=== PATIENT | female | born 1955 | race Hispanic/Latino ===

== ENCOUNTER 2021-06-18 17:22 | Emergency (ER) | payer BC ==
--- OUTSIDE RECORDS SUMMARY | 2021-06-18 17:25 | XMS REPORT | Continuity of Care Document ---
:1955 Author Organization [facility] t Address [address] [place] [address] Dr. [address]. [address] [place] [address] Care Team Providers Name Role Phone DR JOANN Attending Clinician Unavailable DR JOANN Admitting Clinician Unavailable Problems This patient has no known problems. Allergies, Adverse Reactions, Alerts This patient has no known allergies or adverse reactions. Medications This patient has no known medications. Procedures This patient has no known procedures. Encounters Start End Encounter Admission Attending Care Care Encounter Source Date/Time Date/Time Type Type Clinicians Facility Department ID 2020-01-05 2020-01-05 Outpatient SARAH SWANSON [facility] [id number] [facility] 04:22:00 07:45:00 [facility] Results This patient has no known results.
--- NOTE | 2021-06-18 18:14 | ER ---
Nurse's Notes [facility] Name: Lanie Weaver Age: 65 yrs Sex: Female : 1955 Arrival Date: 06/18/2021 Time: 17:23 Bed Waiting Private MD: Diagnosis: ED Course: 06/18 17:23 Patient arrived in ED. as 18:13 Patient's name was called from ER lobby. No response. Unable to locate patient. Will vg1 disposition as left without being seen by a provider. Administered Medications: No medications were administered Outcome: 18:13 Patient left the ED. vg1 Signatures: Teresa Hurt Victoria, RN RN vg1
== END 2021-06-18 18:13 | disposition left against medical advice (07) ==
LOC: ER 17:22
DX: Z02.89 Encounter for other administrative examinations (principal)

== ENCOUNTER 2021-10-30 17:23 | Emergency (ER) | payer BC ==
--- OUTSIDE RECORDS SUMMARY | 2021-10-30 17:24 | XMS REPORT | Continuity of Care Document ---
:1955 Author Organization [facility] t Address [address] [place] [address] Care Team Providers Name Role Phone HARLEY, E Primary Care Physician Unavailable Jamia LI Attending Clinician Unavailable Sam FUNG, S Attending Clinician Doctor Unassigned, Name Attending Clinician Unavailable DR JOANN Attending Clinician Unavailable DR JOANN Admitting Clinician Unavailable Payers Payer Name Policy Type Policy Number Effective Date Expiration Date Jamia TRAMMELLS O [id number] 2020 00:00:00 Problems Condition Condition Condition Status Onset Resolution Last Treating Co mments Source Name Details Category Date Date Treatment Clinician Date Obesity Obesity Disease Active [facility] (BMI (BMI 3-13 ity of 30-39.9) 30-39.9) 00:00: [place] [facility] Acute Acute Disease Active 0 [facility] postoperat postoperat 3-13 [facility] [place]: [place] abdominal abdominal 00 Medi hector pain pain Branch Allergies, Adverse Reactions, Alerts Allergy Allergy Status Severity Reaction(s) Onset Inactive Treating Comm ents Source Name Type Date Date Clinician No Known DA Active [facility] s NO KNOWN Drug Active Univers ALLERGIE Class ity of S [facility] Social History Social Habit Start Date Stop Date Quantity Comments Source Exposure to Not sure [facility] SARS-CoV-2 (event) Medica l Branch Tobacco use and 2018-08-29 2018-08-29 Never used [facility] [place] exposure 00:00:00 00:00:00 Medical Branch Sex Ass[birth year] At [birth year] [facility] [place] 00:00:00 00:00:00 Medical Branch Smoking Status Start Date Stop Date Source Never smoker [facility] Medical Branch Medications Ordered Filled Start Stop Current Ordering Indication Dosage Frequency Signature Comments Components Source Medication Medication Date Date Medication? Clinician (SIG) Name Name No known 2019-0 No Univers medications 3-13 ity of 12:06: [address] No known 2019-0 No Univers medications 3-13 ity of 12:06: [address] No known 2019-0 No Univers medications 3-13 ity of 12:06: [address] No known 2019-0 No Univers medications 3-13 ity of 12:06: [address] No known 2019-0 No Univers medications 3-13 ity of 12:06: [address] No known 2019-0 No Univers medications 3-13 ity of 12:06: [address] No known 2019-0 No Univers medications 3-13 ity of 12:06: [address] No known 2019-0 No Univers medications 3-13 ity of 12:06: [address] Vital Signs Vital Name Observation Time Observation Value Comments Source Height 2020-01-05 04:26:00 157.48 CM Weight 2020-01-05 04:26:00 81.64 KG Weight 2020-01-04 08:35:00 81.64 KG Height 2020-01-04 08:35:00 157.48 CM Procedures Procedure Date / Time Performing Clinician Source Performed BI BREAST CYST 2021-09-29 19:57:11 Indu Li [facility] ASPIRATION LEFT [facility] Branch BI US GUIDED CORE BREAST 2021-09-29 19:50:15 [facility] BI ULTRASOUND BREAST 2021-09-29 18:20:00 Indu Li [facility] COMPLETE BILATERAL Medical Branc h BI DIAGNOSTIC 2021-08-26 14:28:09 Indu Li [facility] TOMOSYNTHESIS BILATERAL Medical Branch EXTERNAL PROVIDER 2021-08-22 06:01:00 Doctor Unassigned, No [facility] RECORDS Name Medical Branch AUTHORIZATION TO RELEASE 2021-08-19 06:01:00 Doctor Unassigned, No [facility] PHI TO [facility] Name Medical Branch REFERRAL- 2021-08-13 06:01:00 Doctor Unassigned, No [facility] REQUEST/RESPONSE Name Medical Branch EXCISION OF RIGHT TARSAL 2020-01-05 00:00:00 [facility] REPAIR RIGHT LOWER LEG 2020-01-05 00:00:00 [facility] TENDON OPEN Center Encounters Start End Encounter Admission Attending Care Care Encounter Source Date/Time Date/Time Type Type Clinicians Facility Department ID 2021-10-07 2021-10-07 Outpatient R [facility] [id number] Univers 13:00:00 13:00:00 INDU [id number] xander [facility] 2021-10-07 2021-10-07 Outpatient R [facility] [id number] Univers 13:00:00 13:00:00 INDU terrell [facility] 2021-09-29 2021-09-29 [facility] [id number] Univers 14:06:43 23:59:00 Encounter Indu S SPECIALTY [id number] [id number] [phone] [address] 2021-09-29 2021-09-29 [facility] [id number] Univers 12:30:39 14:05:00 Encounter Indu S SPECIALTY [id number] [id number] [id number] [address] 2021-09-29 2021-09-29 Outpatient R [facility] [id number] Univers 12:29:59 12:29:59 INDU terrell [facility] 2021-09-29 2021-09-29 [facility] [id number] Univers 12:29:59 12:29:59 Encounter Indu S SPECIALTY [id number] [id number] [phone] In twin [place] [address] [facility] 2021-09-29 2021-09-29 [facility] [id number] Univers 12:28:27 12:28:27 Encounter Indu S SPECIALTY [id number] [id number] [phone] In twin [place] [address] [facility] 2021-08-26 2021-08-26 [facility] [id number] Univers 08:28:09 23:59:00 Encounter Indu S SPECIALTY [id number] [id number] [phone] In twin [place] 802 [facility] 2021-08-22 2021-08-22 Orders Doctor MORGAN [id number] Univers 00:00:00 00:00:00 Only Unassigned, NIMO [id number] ity of [facility] [id number] Dewayne as [phone] [facility] hector [address] [place] [address] 2021-08-19 2021-08-19 Orders Doctor EDDIE [id number] Univers 00:00:00 00:00:00 Only Unassigned, NIMO [id number] ity of [facility] [id number] Dewayne as [phone] [facility] hector [address] [place] 2021-08-13 2021-08-13 Orders Doctor EDDIE [id number] Univers 00:00:00 00:00:00 Only Unassigned, NIMO [id number] ity of [facility] [id number] Dewayne as [phone] [address] 2020-01-05 2020-01-05 Outpatient Darrell DAVID [facility] [id number] 002 [facility] 04:22:00 07:45:00 [facility] Results This patient has no known results.
--- NOTE | 2021-10-30 19:24 | RAD REPORT ---
EXAM DESCRIPTION: RAD - Foot Left 3 View - 10/30/2021 7:13 pm CLINICAL HISTORY: Left Foot pain status post injury FINDINGS: No fracture or dislocation is seen. Large plantar calcaneal spur
--- NOTE | 2021-10-30 19:42 | ER ---
Nurse's Notes [facility] Name: Lanie Weaver Age: 66 yrs Sex: Female : 1955 Arrival Date: 10/30/2021 Time: 17:43 Bed 6 Private MD: Diagnosis: Pain in left foot;Contusion of left foot;Other sprain of left foot Presentation: 10/30 18:40 Chief complaint: Patient states: L leg and foot pain that began yesterday after falling ss at work. Coronavirus screen: Client denies travel out of the [place] in the last 14 days. Ebola Screen: Patient denies exposure to infectious person. Patient denies travel to an Ebola-affected area in the 21 days before illness onset. Initial Sepsis Screen: Does the patient meet any 2 criteria? No. Patient's initial sepsis screen is negative. Does the patient have a suspected source of infection? No. Patient's initial sepsis screen is negative. Risk Assessment: Do you want to hurt yourself or someone else? Patient reports no desire to harm self or others. Onset of symptoms was October 29, 2021. 18:40 Method Of Arrival: Ambulatory ss 18:40 Acuity: JOY 4 ss Historical: - Allergies: 18:42 No Known Allergies; ss - Immunization history:: Client reports having NOT received the Covid vaccine. - Social history:: Smoking status: Patient denies any tobacco usage or history of. Screenin:49 Abuse screen: Denies threats or abuse. Denies injuries from another. Nutritional as6 screening: No deficits noted. Tuberculosis screening: No symptoms or risk factors identified. Fall Risk None identified. Assessment: 19:48 General: Appears in no apparent distress. Behavior is calm, cooperative. Pain: as6 Complains of pain in left lateral ankle, left Achilles, left medial ankle and anterior aspect of left ankle. Neuro: Level of Consciousness is awake, alert, obeys commands, Oriented to person, place, time, situation. Cardiovascular: JVD is absent Patient's skin is warm and dry. Respiratory: Respiratory effort is even, unlabored, Respiratory pattern is regular, symmetrical. Musculoskeletal: Swelling present in left lateral ankle, left Achilles, left medial ankle and anterior aspect of left ankle. Vital Signs: 18:40 BP 122 / 82; Pulse 79; Resp 16; Temp 98.8(TE); Pulse Ox 99% on R/A; Weight 80.74 kg; Height 5 ft. 2 in. (157.48 cm); Pain 5/10; 18:40 Body Mass Index 32.56 (80.74 kg, 157.48 cm) ED Course: 17:43 Patient arrived in ED. ds1 18:04 Quinn Urena DO is Attending Physician. ms3 18:42 Triage completed. 18:42 Arm band placed on right wrist. 19:15 Foot Left 3 View XRAY In Process Unspecified. EDMS 19:28 Luis Enrique Gonzalez, RN is Primary Nurse. as6 19:31 Attending Physician role handed off by Quinn Urena DO [facility] 19:31 Efren Ruiz MD is Attending Physician. [facility] 19:41 Francisco Javier Garsia MD is Referral Physician. [facility] 19:49 No provider procedures requiring assistance completed. Patient did not have IV access as6 during this emergency room visit. 19:50 Bed in low position. Call light in reach. as6 Administered Medications: No medications were administered Medication: 19:50 VIS not applicable for this client. as6 Outcome: 19:41 Discharge ordered by . [facility] 19:50 Discharged to home ambulatory. as6 19:50 Condition: stable 19:50 Discharge instructions given to patient, Instructed on discharge instructions, follow up and referral plans. medication usage, Demonstrated understanding of instructions, follow-up care, medications, Prescriptions given X 2. 19:50 Patient left the ED. as6 Signatures: Dispatcher [employer] [facility] Efren Ruiz MD MD cha Sanford, Demi ds1 Radha Velasquez RN RN Quinn Urena DO DO ms3 Luis Enrique Gonzalez, SYLVIA RN as6
--- NOTE | 2021-10-30 19:42 | EDPHYS ---
Physician Documentation [facility] Name: Lanie Weaver Age: 66 yrs Sex: Female : 1955 Arrival Date: 10/30/2021 Time: 17:43 Bed 6 Private MD: ED Physician Efren Ruiz HPI: 10/30 18:11 This 66 yrs old Female presents to ER via Unassigned with complaints of Fall ms3 Injury. 18:11 Details of fall: The patient fell from an upright position, while standing, and struck ms3 Plastic ramp. Onset: The symptoms/episode began/occurred acutely, yesterday. Associated injuries: The patient sustained left leg, left foot. Severity of symptoms: At their worst the symptoms were moderate, in the emergency department the symptoms are unchanged, a " 5" out of "10". Historical: - Allergies: 18:42 No Known Allergies; ss - Immunization history:: Client reports having NOT received the Covid vaccine. - Social history:: Smoking status: Patient denies any tobacco usage or history of. ROS: 18:11 Constitutional: Negative for fever, and chills. Neck: Negative for injury, pain, and ms3 swelling, Cardiovascular: Negative for chest pain, and palpitations. Respiratory: Negative for shortness of breath, cough, wheezing, and pleuritic chest pain, Abdomen/GI: Negative for abdominal pain, nausea, vomiting, diarrhea, and constipation, Skin: Negative for injury, rash, and discoloration. 18:11 All other systems are negative. Exam: 18:11 Constitutional: This is a well developed, well nourished patient who is awake, alert, ms3 and in no acute distress. Head/Face: Normocephalic, atraumatic. Neck: Trachea midline, no cervical lymphadenopathy. Supple, full range of motion without nuchal rigidity, or vertebral point tenderness. No Meningismus. Chest/axilla: Normal chest wall appearance and motion. Nontender with no deformity. Cardiovascular: Regular rate and rhythm with a normal S1 and S2. No gallops, murmurs, or rubs. Normal PMI, no JVD. No pulse deficits. Respiratory: Lungs have equal breath sounds bilaterally, clear to auscultation and percussion. No rales, rhonchi or wheezes noted. No increased work of breathing, no retractions or nasal flaring. Abdomen/GI: Soft, non-tender, with normal bowel sounds. No distension or tympany. No guarding or rebound. No evidence of tenderness throughout. Psych: Awake, alert, with orientation to person, place and time. Behavior, mood, and affect are within normal limits. 18:11 Musculoskeletal/extremity: Extremities: noted in the left foot: contusion, pain, swelling, tenderness. Vital Signs: 18:40 BP 122 / 82; Pulse 79; Resp 16; Temp 98.8(TE); Pulse Ox 99% on R/A; Weight 80.74 kg; ss Height 5 ft. 2 in. (157.48 cm); Pain 5/10; 18:40 Body Mass Index 32.56 (80.74 kg, 157.48 cm) ss MDM: 18:11 Differential diagnosis: contusion, fracture, sprain, strain. ms3 19:10 Data reviewed: vital signs, nurses notes. Transition of care: After a detail discussion ms3 of the patient's case, care is transferred to Efren Ruiz MD. 19:32 Patient medically screened. [facility] 10/30 18:11 Order name: Foot Left 3 View XRAY; Complete Time: 19:33 ms3 Administered Medications: No medications were administered Disposition Summary: 10/30/21 19:41 Discharge Ordered Location: Home [facility] Condition: Stable [facility] Diagnosis - Pain in left foot bruno - Contusion of left foot bruno - Other sprain of left foot [facility] Followup: ms3 - With: - When: 1 week - Reason: Recheck today's complaints Discharge Instructions: - Discharge Summary Sheet ms3 - Musculoskeletal Pain ms3 - Foot Pain ms3 Forms: - Medication Reconciliation Form [facility] - Thank You Letter [facility] - Antibiotic Education bruno - Prescription Opioid Use [facility] - Work release form as6 Prescriptions: - Ibuprofen 600 mg Oral Tablet - take 1 tablet by ORAL route every 6 hours As needed take with food; 20 tablet; [facility] Refills: 0, Product Selection Permitted - Tylenol-Codeine #3 300 mg-30 mg Oral - take 2 tablet by ORAL route every 6 hours; 15 tablet; Refills: 0, Product [facility] Selection Permitted Signatures: Dispatcher [employer] Efren Núñez MD MD cha Smirch, Shelby, RN RN Quinn Sherman DO DO ms3
[2021-10-31 00:17] VITALS: BP 122/82; TEMP 98.8; O2SAT 99
== END 2021-10-30 19:50 | disposition home or self-care (01) ==
LOC: ER 17:23
DX: S93.692A Other sprain of left foot, initial encounter (principal); S90.32XA Contusion of left foot, initial encounter; W18.30XA Fall on same level, unspecified, initial encounter
CPT/HCPCS: 99283

== ENCOUNTER 2023-04-06 17:28 | Observation (INO) | payer BC, OTHER ==
--- OUTSIDE RECORDS SUMMARY | 2023-04-06 17:32 | XMS REPORT | Continuity of Care Document ---
:1955 Author Organization [facility] t Address [address] [place] [address] [address] [place] [address] Care Team Providers Name Role Phone ABIDA HARLEY Primary Care Physician Unavailable Daphnie Attending Clinician Unavailable BRADFORD SHELBY Attending Clinician Unavailable Bradford Finn Attending Clinician RADIOLOGY Attending Clinician Unavailable Radiology Attending Clinician Unavailable Moriah Attending Clinician Unavailable Tk Abbott Attending Clinician [phone] INDU LI Attending Clinician Unavailable Indu Li MD Attending Clinician Doctor Unassigned, [place] Attending Clinician Unavailable DR LESLIE DAVID Attending Clinician Unavailable Daphnie Admitting Clinician Unavailable BRADFORD SHELBY Admitting Clinician Unavailable TK ABBOTT Admitting Clinician Unavailable Moriah Admitting Clinician Unavailable DR LESLIE DAVID Admitting Clinician Unavailable Payers Payer Name Policy Type Policy Number Effective Date Expiration Date Jamia jose [place] [id number] 2020 ADVANTAGE (HMO) 00:00:00 [place] [id number] 2021 [email or web address] 00:00:00 BLUE ESSENTIALS [id number] 2020 HMO 00:00:00 MEDICARE PART A [id number] 2021 \T\ B 00:00:00 AETNA - CHOICE [id number] 2014 2020 (POS II) 00:00:00 00:00:00 Problems Condition Condition Condition Status Onset Resolution Last Treating Co mments Source Name Details Category Date Date Treatment Clinician Date Hypothyroi Hypothyroi Problem Active P rivia dism dism 7- Medical 00:00: 00 Hypertensi Hypertensi Problem Active P [facility]ia ve ve 7-13 Medical disorder Disorder 00:00: 00 Obesity Obesity Disease Active Univers (BMI (BMI 3-13 ity of 30-39.9) 30-39.9) 00:00: [place] 00 Medical Branch Acute Acute Disease Active Univers postoperat postoperat 3-13 it y of [place] 00:00: [place] abdominal abdominal 00 Medi hector pain pain Branch Allergies, Adverse Reactions, Alerts Allergy Allergy Status Severity Reaction(s) Onset Inactive Treating Comm ents Source Name Type Date Date Clinician No Known DA Active [facility] s NO KNOWN Drug Active Univers ALLERGIE Class ity of S [facility] Social History Social Habit Start Date Stop Date Quantity Comments Source Exposure to Not sure [facility] SARS-CoV-2 [facility] (event) [place] Tobacco use and 2018-08-31 2018-08-31 Smokeless tobacco Un iversity of exposure 00:00:00 00:00:00 non-user [facility] Sex Ass[birth year] At [birth year] Universit y of 00:00:00 00:00:00 [facility] Smoking Status Start Date Stop Date Source Never smoked tobacco [facility] Medications Ordered Filled Start Stop Current Ordering Indication Dosage Frequency Signature Comments Components Source Medication Medication Date Date Medication? Clinician (SIG) Name Name predniSONE 2021- No [id number] 40mg Take 2 Univers 20 mg 02-18 105 tablets by ity of tablet 00:00: 04:59 mouth [place] 00 :00 every Medical morning Branch for 5 days. predniSONE 2021- No [id number] 40mg Take 2 Univers 20 mg 02-18 105 tablets by ity of tablet 00:00: 04:59 mouth [place] 00 :00 every Medical morning [place] for 5 days. predniSONE 2021- No [id number] 40mg Take 2 Univers 20 mg 02-18 105 tablets by ity of tablet 00:00: 00:00 mouth [place] 00 :00 [facility] Medical morning [place] for 5 days. No known 2019-0 No Univers medications 3-13 ity of 12:06: [address] No known 2019-0 No Univers medications 3-13 ity of 12:06: [address] No known 2019-0 No Univers medications 3-13 ity of 12:06: [address] No known 2019-0 No Univers medications 3-13 ity of 12:06: [address] No known 2019-0 No Univers medications 3-13 ity of 12:06: [address] No known 2019-0 No Univers medications 3-13 ity of 12:06: [address] No known 2019-0 No Univers medications 3-13 ity of 12:06: [address] No known 2019-0 No Univers medications 3-13 ity of 12:06: [address] Euthyrox 75 Euthyrox 75 No Euthyrox [facility] mcg tablet mcg tablet 75 mcg M edical TAKE 1 TAKE 1 tablet TABLET BY TABLET BY TAKE 1 MOUTH ONCE MOUTH ONCE TABLET BY DAILY IN DAILY IN MOUTH ONCE THE MORNING THE MORNING DAILY IN ON AN EMPTY ON AN EMPTY THE STOMACH STOMACH MORNING ON AN EMPTY STOMACH lisinopril lisinopril No lisinopril [facility] 20 20 20 Medical mg-hydrochl mg-hydrochl mg-hydroch orothiazide orothiazide lorothiazi 12.5 mg 12.5 mg de 12.5 mg tablet TAKE tablet TAKE tablet 1 TABLET BY 1 TABLET BY TAKE 1 MOUTH ONCE MOUTH ONCE TABLET BY DAILY DAILY MOUTH ONCE DAILY Vital Signs Vital Name Observation Time Observation Value Comments Source Systolic blood 2022-02-18 13:44:00 135 mm[Hg] Univer sity of pressure [facility] Diastolic blood 2022-02-18 13:44:00 80 mm[Hg] Unive rsity [facility] Heart rate 2022-02-18 13:44:00 77 /min Universi ty of [facility] Body temperature 2022-02-18 13:44:00 37.28 Randi Univ ersity [facility] Respiratory rate 2022-02-18 13:44:00 20 /min [facility] Body height 2022-02-18 13:44:00 157.5 cm [facility] Body weight 2022-02-18 13:44:00 81.647 kg [facility] BMI 2022-02-18 13:44:00 32.92 kg/m2 [facility] Oxygen saturation in 2022-02-18 13:44:00 98 /min [facility] Arterial blood by [facility] Pulse oximetry Branch BP Diastolic 2021-12-31 00:00:00 78 mm[Hg] Modesto Yeager [facility] Height 2021-12-31 00:00:00 62 [in_i] Modesto Yeager [facility] BMI (Body Mass 2021-12-31 00:00:00 32.2 kg/m2 [facility] Index) BP Systolic 2021-12-31 00:00:00 119 mm[Hg] Modesto Yeager [facility] Body Weight 2021-12-31 00:00:00 176 [lb_av] Modesto Yeager [facility] Height 2020-01-05 04:26:00 157.48 CM Weight 2020-01-05 04:26:00 81.64 KG Height 2020-01-04 08:35:00 157.48 CM Weight 2020-01-04 08:35:00 81.64 KG Procedures Procedure Date / Time Performing Clinician Source Performed XR ANKLE 3+ VW LEFT 2022-02-18 14:08:20 Bradford Shelby [facility] CONSENT/REFUSAL FOR 2022-02-18 13:39:07 [facility] TREATMENT [place] [facility] DEXA AXIAL (HIP AND SPINE) 2022-02-18 13:36:47 Tk Abbott [facility] NOTICE OF BILLING 2022-02-18 13:05:52 Doctor Jose Miguel, [facility] PRACTICES FOR MEDICARE [place] [facility] PATIENTS [facility] PATIENT FINANCIAL 2022-02-18 13:05:28 Doctor Jose Miguel, [facility] POLICY [place] [facility] NO SHOW OR MISSED 2022-02-18 13:05:03 Doctor Jose Miguel, [facility] APPOINTMENT POLICY [place] [facility] h ACKNOWLEDGEMENT CONSENT/REFUSAL FOR 2022-02-18 13:04:39 Doctor Gillespie [facility] DIAGNOSIS AND TREATMENT [place] [facility] ASSIGNMENT OF BENEFITS 2022-02-18 13:04:15 Jamel Em [facility] [place] [facility] BONE DENSITY MEASUREMENT 2021-12-31 00:00:00 Viv [facility] Medical USING DEDICATED X RAY MACHINE BI BREAST CYST ASPIRATION 2021-09-29 19:57:11 Indu Li [facility] LEFT Medical Branch BI US GUIDED CORE BREAST 2021-09-29 19:50:15 Indu Li [facility] BIOPSY LEFT Medical Branch BI ULTRASOUND BREAST 2021-09-29 18:20:00 Indu Li [facility] COMPLETE BILATERAL Medical Bran h Core Needle Biopsy of 2021-09-19 00:00:00 [facility] Breast BI DIAGNOSTIC 2021-08-26 14:28:09 Indu Li [facility] TOMOSYNTHESIS BILATERAL Medical Branch EXTERNAL PROVIDER RECORDS 2021-08-22 06:01:00 Doctor Gillespie [facility] [place] [facility] AUTHORIZATION TO RELEASE 2021-08-19 06:01:00 Doctor Gillespie [facility] PHI TO [facility] [place] [facility] REFERRAL- REQUEST/RESPONSE 2021-08-13 06:01:00 Doctor Gillespie [facility] [place] [facility] EXCISION OF RIGHT TARSAL 2020-01-05 00:00:00 [facility] OPEN Center REPAIR RIGHT LOWER LEG 2020-01-05 00:00:00 [facility] TENDON OPEN Center Orthopedic - Arthroscopic [facility] Medical Surgery Cholecystectomy [facility] Medical (Gallbladder) Plan of Care Planned Activity Planned Date Details Comments Source Diagnostic Test 2021-12-31 00:00:00 [place] IgE Ab P [facility] Pending [Units/volume] in Serum [code = 6195-2] Diagnostic Test 2021-12-31 00:00:00 Mucor racemosus IgE [facility] Pending Ab [Units/volume] in Serum [code = 6182-0] Encounters Start End Encounter Admission Attending Care Care Encounter Source Date/Time Date/Time Type Type Clinicians Facility Department ID 2023-01-27 2023-01-27 Outpatient FOG_Loncari AOSM AOSM [id number] [place] 00:00:00 00:00:00 Juvenal [id number] Orth ope dic Sports Medicin e 2023-01-27 2023-01-27 Outpatient FOG_Loncari AOSM AOSM [id number] [place] 00:00:00 00:00:00 Juvenal [id number] Orth ope dic Sports Medicin e 2023-01-26 2023-01-26 Outpatient FOG_Loncari AOSM AOSM [id number] [place] 00:00:00 00:00:00 Juvenal [id number] Orth ope dic Sports Medicin e 2023-01-15 2023-01-15 Outpatient FOG_Loncari AOSM AOSM [id number] [place] 00:00:00 00:00:00 Juvenal [id number] Orth ope dic Sports Medicin e 2022-02-18 2022-02-18 Emergency [facility] [id number] Univers 08:45:00 10:23:00 BRADFORD ity [facility] 2022-02-18 2022-02-[address] [facility] [id number] Univers 08:45:00 10:23:00 Bradford S [place] [id number] i ty [facility] [id number] [facility] [id number] [facility] 084 Branch 2022-02-18 2022-02-18 Outpatient R RADIOLOGY [facility] [id number] Univers 08:03:04 08:44:00 ity of [facility] 2022-02-18 2022-02-18 Hospital Radiology [facility] [id number] Univers 08:03:04 08:44:00 Encounter [place] [id number] ity [facility] [id number] [facility] [id number] [facility] 800 Branch 2021-12-31 2021-12-31 Outpatient GC_SWHAOMC_ PRIV PRIV [id number] [facility] 01:11:00 01:11:00 Jennifer [id number] Medic al 2021-12-31 2021-12-31 Tk PRIV [facility] [id number] [facility] 00:00:00 00:00:00 [facility] - Medic tahnia Abbott GC_GASTON_ : [address], [place] [address] , Ph. 2021-12-31 2021-12-31 Outpatient Vishnu, PRIV PRIV [id number] 00:00:00 00:00:00 Tk [id number] Rastajasiel [id number] 2021-12-30 2021-12-30 Outpatient GC_SWHAOMC_ PRIV PRIV [id number] [facility] 12:33:00 12:33:00 Jennifer [id number] Medic al 2021-12-29 2021-12-29 Outpatient GC_SWHAOMC_ PRIV PRIV [id number] [facility] 06:10:00 06:10:00 Jennifer [id number] Medic al 2021-10-07 2021-10-07 Outpatient R [facility] [id number] Univers 13:00:00 13:00:00 INDU ity [facility] 2021-09-29 2021-09-29 [facility] [id number] Univers 14:06:43 23:59:00 Encounter Indu S SPECIALTY [id number] ity of CARE [id number] [facility] s [place] AT [id number] [address] 2021-09-29 2021-09-29 Outpatient R [facility] [id number] Univers 00:00:00 23:59:00 INDU ity [facility] 2021-09-29 2021-09-29 [facility] [id number] Univers 12:30:39 14:05:00 Encounter Indu S SPECIALTY [id number] ity of [id number] [place] [id number] Or blancathania [address] 2021-09-29 2021-09-29 [facility] [id number] Univers 12:29:59 12:29:59 Encounter Indu S SPECIALTY [id number] it[place] of [id number] [place] [id number] Or twin [place] 800 [facility] 2021-09-29 2021-09-29 [facility] [id number] Univers 12:28:27 12:28:27 Encounter Indu S SPECIALTY [id number] ity of [id number] [place] [id number] Or twin [place] 800 [facility] 2021-08-26 2021-08-26 [facility] [id number] Univers 08:28:09 23:59:00 Encounter Indu S SPECIALTY [id number] it[place] of [id number] [place] [id number] [place] twin [place] 802 [facility] 2021-08-26 2021-08-26 Outpatient R [facility] [id number] [facility] 08:28:09 23:59:00 INDU ity of [facility] 2021-08-22 2021-08-22 Orders Doctor MORGAN [id number] Univers 00:00:00 00:00:00 Only Unassigned, NIMO [id number] ity of [place] [facility] [id number] [place] as [id number] [address] 2021-08-19 2021-08-19 Orders Doctor MORGAN [id number] Univers 00:00:00 00:00:00 Only Unassigned, NIMO [id number] ity of [place] [facility] [id number] [place]ay[place] as [id number] [address] 2021-08-13 2021-08-13 Orders Doctor EDDIE [id number] Univers 00:00:00 00:00:00 Only Unassigned, NIMO [id number] ity of [place] [facility] [id number] [place]ay[place] as [id number] [place] [address] Branch 2020-01-05 2020-01-05 Outpatient Darrell DAVID [facility] [id number] 002 [facility] 04:22:00 07:45:00 [facility] Results This patient has no known results.
[2023-04-06 18:20] LABS: Absolute Lymphocytes (CBC) 1.4 K/uL (0.7-4.9); Hematocrit 37.3 % (36.0-45.0); Lymphocytes % 18.3 % (15.3-44.8); MCV 85.8 fL (80-100); MPV 7.3 fL (7.6-11.3); Platelets 325 thou/uL (152-406); RBC Red Blood Cell Count 4.35 M/uL (3.86-4.86)
[2023-04-06 18:25] LABS: Protime INR 0.95
[2023-04-06 18:40] LABS: ALT/SGPT 31 U/L (13-56); AST/SGOT 21 U/L (15-37); Albumin 3.5 g/dL (3.4-5.0); Alkaline Phosphatase 95 U/L (45-117); BUN Blood Urea Nitrogen 22 mg/dL (7-18); Bicarbonate 28 mEq/L (21-32); Bilirubin Total 0.2 mg/dL (0.2-1.0); Glomerular Filtration Rate 55 ml/min (=/>90); Glucose Level 105 mg/dL (74-106); Lipase 32 U/L (13-75); Magnesium 2.3 mg/dL (1.6-2.4); Protein, Total 7.6 g/dL (6.4-8.2); Sodium Level 136 mEq/L (136-145); Troponin High Sensitivity 5.3 pg/mL (<58.9)
[2023-04-06 18:41] LABS: Bilirubin Direct < 0.1 mg/dL (0-0.2); Bilirubin Indirect, Calculated ND mg/dL (0.2-0.8)
[2023-04-06] MEDS ORDERED: KETOROLAC 30 MG/ML INJ ONE (19:48)
--- NOTE | 2023-04-06 20:27 | RAD REPORT ---
EXAM DESCRIPTION: CT - Chest For Pe Angio - 04/06/2023 7:37 pm CLINICAL HISTORY: CHEST PAIN COMPARISON: No comparisons TECHNIQUE: Thin axial CT images of the chest were obtained following administration of 100 mL Isovue 370 IV contrast. Multiplanar reconstructions, and maximum intensity projection reconstructions were generated and reviewed. Exam utilizes a protocol for optimal evaluation of pulmonary arterial tree. All CT scans are performed using dose optimization technique as appropriate and may include automated exposure control or mA/KV adjustment according to patient size. FINDINGS: Pulmonary arteries are normal. No emboli or other suspicious finding. No acute or signific ant aorta findings. Four vessel arch configuration is incidentally noted. No mass or infiltrate in the lung parenchyma. Subtle geographic ground-glass opacities in the depende nt portions bilaterally probably relate to decreased inspiratory effort. No pleural thickening or ple ural effusion. No pneumothorax. No abnormal mediastinal or hilar masses or lymphadenopathy seen. No chest wall mass or abnormal axill iary lymphadenopathy. Status post cholecystectomy. IMPRESSION: No evidence of acute central pulmonary emboli. No other acute pulmonary process.
--- NOTE | 2023-04-06 20:47 | RAD REPORT ---
EXAM DESCRIPTION: Genevieve Single View04/06/2023 6:46 pm CLINICAL HISTORY: CHEST PAIN COMPARISON: No comparisons TECHNIQUE: Portable AP view of the chest. FINDINGS: The lungs are clear. No pneumothorax or effusion. The cardiomediastinal contours are unre markable. IMPRESSION: No acute cardiopulmonary process.
--- NOTE | 2023-04-06 21:34 | EDPHYS ---
Physician Documentation [facility] Name: Lanie Weaver Age: 67 yrs Sex: Female : 1955 Arrival Date: 04/06/2023 Time: 17:28 Bed 9 Private MD: ED Physician Quinn Urena HPI: 04/06 17:45 This 67 yrs old Female presents to ER via Unassigned with complaints of Chest cp Pain. 17:45 The patient or guardian reports chest pain that is located primarily in the substernal cp area. 17:45 Onset: today, about 1600. The pain does not radiate. cp 17:45 Associated signs and symptoms: Pertinent negatives: abdominal pain, cough, diaphoresis, cp lower extremity pain, lower extremity swelling, palpitations, shortness of breath, syncope. The chest pain is described as described as "soreness". Duration: The patient or guardian reports multiple episodes, that wax and wane. Modifying factors: the symptoms are aggravated by deep breath. Severity of pain: in the emergency department the pain has improved. Historical: - Allergies: 17:56 No Known Allergies; jl7 - PMHx: 17:56 Hypertensive disorder; Hypothyroidism; jl7 - PSHx: 17:56 None; jl7 - Immunization history:: Adult Immunizations unknown. - Social history:: Smoking status: Patient denies any tobacco usage or history of. ROS: 17:50 Cardiovascular: Positive for chest pain, Negative for edema, palpitations, cp 17:50 Constitutional: Negative for body aches, fever, poor PO intake, cp 17:50 Eyes: Negative for injury, pain, redness, and discharge, cp 17:50 ENT: Negative for drainage from ear(s), ear pain, sore throat, difficulty swallowing, difficulty handling secretions, 17:50 Respiratory: Negative for cough, shortness of breath, wheezing, 17:50 Abdomen/GI: Negative for abdominal pain, vomiting, diarrhea, constipation, 17:50 Back: Negative for pain at rest, pain with movement, radiated pain, 17:50 : Negative for urinary symptoms, 17:50 Neuro: Negative for altered mental status, dizziness, headache, numbness, syncope, weakness, 17:50 All other systems are negative, Exam: 17:45 ECG was reviewed by the Attending Physician. cp 17:50 Head/Face: Normocephalic, atraumatic. cp 17:50 Constitutional: The patient appears in no acute distress, alert, awake, non-diaphoretic, non-toxic, well developed, well nourished, 17:50 Eyes: Periorbital structures: appear normal, Conjunctiva: normal, no exudate, no injection, Sclera: no appreciated abnormality, Lids and lashes: appear normal, bilaterally, 17:50 ENT: External ear(s): are unremarkable, Nose: is normal, Mouth: Lips: moist, Oral mucosa: pink and intact, moist, Posterior pharynx: is normal, airway is patent, no erythema, no exudate, 17:50 Chest/axilla: Inspection: normal, Palpation: crepitus, is not appreciated, tenderness, is not appreciated, 17:50 Cardiovascular: Rate: normal, Rhythm: regular, Edema: is not appreciated, JVD: is not appreciated, 17:50 Respiratory: the patient does not display signs of respiratory distress, Respirations: normal, no use of accessory muscles, no retractions, labored breathing, is not present, Breath sounds: are clear throughout, no decreased breath sounds, no stridor, no wheezing, 17:50 Abdomen/GI: Inspection: abdomen appears normal, Palpation: abdomen is soft and non-tender, in all quadrants, 17:50 Back: pain, is absent, ROM is normal, 17:50 Neuro: Orientation: to person, place \\T\\ time. Mentation: is normal, Motor: moves all fours, strength is normal, Sensation: is normal, Vital Signs: 17:52 BP 121 / 74; Pulse 75; Resp 17; Temp 97.9; Pulse Ox 100% ; Weight 81.65 kg; Height 5 7 ft. 2 in. ; Pain 0/10; 19:30 BP 118 / 74; Pulse 74; Resp 16; Pulse Ox 100% ; cm10 20:00 BP 115 / 74; Pulse 74; Resp 18; Pulse Ox 100% on R/A; cm10 20:00 BP 118 / 74; Pulse 72; Resp 18; Pulse Ox 99% ; cm10 23:37 BP 118 / 82; Pulse 69; Resp 16; Pulse Ox 100% ; cm10 17:52 Body Mass Index 32.92 (81.65 kg, 157.48 cm) jl7 17:52 Pain Scale: Adult jl7 MDM: 17:41 Patient medically screened. cp 21:05 Data reviewed: vital signs, nurses notes, lab test result(s), EKG, radiologic studies, cp CT scan, plain films. 21:15 Consideration of Admission/Observation Patient was admitted/placed on observation. cp 21:15 Differential diagnosis: acute myocardial infarction, acute pericarditis, pericarditis, cp pleurisy, pneumonia, pneumothorax, pulmonary embolus, stable angina, thoracic aortic disection, unstable angina. Management of patient was discussed with the following: Hospitalist: Alka Camarillo, RADIO MESSAGE ROUTER will admit after discussion. Independent interpretation of the following test(s) in the Emergency Department EKG: See my EKG interpretation above. Care significantly affected by the following chronic conditions: Hypertension, Obesity. Counseling: I had a detailed discussion with the patient and/or guardian regarding the historical points, exam findings, and any diagnostic results supporting the discharge/admit diagnosis, lab results, radiology results. 04/06 17:45 Order name: Basic Metabolic Panel; Complete Time: 18:42 04/06 18:42 Interpretation: Normal except: BUN 22; CRE 1.11; GFR 55; CA 8.0. 04/06 17:45 Order name: CBC with Diff; Complete Time: 18:34 04/06 18:34 Interpretation: Reviewed. 04/06 17:45 Order name: LFT's; Complete Time: 18:42 04/06 18:42 Interpretation: Normal except: GLOB 4.1; A/G 0.9. 04/06 17:45 Order name: Magnesium; Complete Time: 18:42 04/06 17:45 Order name: PT-INR; Complete Time: 18:34 04/06 17:45 Order name: Troponin HS; Complete Time: 18:42 cp 04/06 18:43 Interpretation: Troponin HS 5.3; Reviewed. 04/06 17:45 Order name: Lipase; Complete Time: 18:42 04/06 18:43 Interpretation: Reviewed. 04/06 17:45 Order name: XRAY Chest (1 view); Complete Time: 20:58 cp 04/06 20:58 Interpretation: Report review. 04/06 19:18 Order name: CT Chest For PE Angio; Complete Time: 20:58 04/06 20:58 Interpretation: Report reviewed. 04/06 17:45 Order name: EKG; Complete Time: 17:46 cp 04/06 22:04 Order name: CONS Physician Consult EDWA 04/06 17:45 Order name: Cardiac monitoring; Complete Time: 18:30 cp 04/06 17:45 Order name: EKG - Nurse/Tech; Complete Time: 17:51 cp 04/06 17:45 Order name: IV Saline Lock; Complete Time: 17:51 cp 04/06 17:45 Order name: Labs collected and sent; Complete Time: 17:51 cp 04/06 17:45 Order name: O2 Per Protocol; Complete Time: 17:51 cp 04/06 17:45 Order name: O2 Sat Monitoring; Complete Time: 17:51 cp EC:45 Rate is 74 beats/min. Rhythm is regular. MO interval is normal. QRS interval is normal. cp QT interval is normal. T waves are Inverted in lead aVR. Interpreted by me. Reviewed by me. Administered Medications: 19:58 Not Given (Patient Refused): [id number] mg IVP once cm10 Disposition: 21:55 I was immediately available on-site in the Emergency Department for consultation in the ms3 care of the patient. Disposition Summary: 04/06/23 21:33 Hospitalization Ordered Notes: Hospitalization Status: Observation cp Provider: Alka Camarillo cp Location: Telemetry/MedSurg (observation) cp Condition: Stable cp Problem: new cp Symptoms: have improved cp Bed/Room Type: Standard Room Assignment: 208(04/06/23 23:16) cg Diagnosis - Chest pain, unspecified cp Forms: - Medication Reconciliation Form cp - SBAR form cp - Leadership Thank You Letter cp Signatures: Dispatcher [employer] EDWA Efren Salazar PA PA cp Sari Loo, RN RN cg Torri Saucedo RN RN jl7 Quinn Urena DO DO ms3 Magaly Hurt RN cm10 Corrections: (The following items were deleted from the chart) 17:56 17:56 Home Meds: None; jl7 jl7 17:56 17:56 PMHx: None; jl7 jl7 23:16 21:33 cp cg
--- NOTE | 2023-04-06 21:34 | ER ---
Nurse's Notes [facility] Name: Lanie Weaver Age: 67 yrs Sex: Female : 1955 Arrival Date: 04/06/2023 Time: 17:28 Bed 9 Private MD: Diagnosis: Chest pain, unspecified Presentation: 04/06 17:52 Chief complaint: Patient states: Midsternal CP, intermittent since 1600 today, feels jl7 "sore". Coronavirus screen: At this time, the client does not indicate any symptoms associated with coronavirus-19. Ebola Screen: No symptoms or risks identified at this time. Initial Sepsis Screen: Does the patient meet any 2 criteria? No. Patient's initial sepsis screen is negative. Does the patient have a suspected source of infection? No. Patient's initial sepsis screen is negative. Risk Assessment: Do you want to hurt yourself or someone else? Patient reports no desire to harm self or others. Onset of symptoms was April 06, 2023 at 16:00. 17:52 Method Of Arrival: Ambulatory [facility] 17:52 Acuity: JOY 3 jl7 Triage Assessment: 18:16 General: Appears in no apparent distress. comfortable, Behavior is. Pain: Complains of cm10 pain in chest Quality of pain is described as Sore. 18:16 EENT: No deficits noted. No signs and/or symptoms were reported regarding the EENT cm10 system. Neuro: No deficits noted. Loo Agitation-Sedation Scale (RASS): 0 - Alert and Calm Level of Consciousness is awake, alert, obeys commands, Oriented to person, place, time, situation. Cardiovascular: Reports chest pain, Patient's skin is warm and dry. Respiratory: No deficits noted. Airway is patent Respiratory effort is even, unlabored, Respiratory pattern is regular, symmetrical. GI: No deficits noted. No signs and/or symptoms were reported involving the gastrointestinal system. : No deficits noted. No signs and/or symptoms were reported regarding the genitourinary system. Derm: No deficits noted. No signs and/or symptoms reported regarding the dermatologic system. Skin is intact, Skin is pink, warm \\T\\ dry. Musculoskeletal: No deficits noted. Range of motion: intact in all extremities. Historical: - Allergies: 17:56 No Known Allergies; jl7 - PMHx: 17:56 Hypertensive disorder; Hypothyroidism; 7 - PSHx: 17:56 None; jl7 - Immunization history:: Adult Immunizations unknown. - Social history:: Smoking status: Patient denies any tobacco usage or history of. Screenin:17 [facility] ED Fall Risk Assessment (Adult) History of falling in the last 3 months, cm10 including since admission No falls in past 3 months (0 pts) Confusion or Disorientation No (0 pts) Intoxicated or Sedated No (0 pts) Impaired Gait No (0 pts) Mobility Assist Device Used No (0 pt) Altered Elimination No (0 pt) Score/Fall Risk Level 0 - 2 = Low Risk Oriented to surroundings, Maintained a safe environment, Hourly rounding (assess needs \\T\\ fall precautionary measures) done. Abuse screen: Denies threats or abuse. Denies injuries from another. Nutritional screening: No deficits noted. Tuberculosis screening: No symptoms or risk factors identified. Assessment: 19:58 Reassessment: Patient appears in no apparent distress at this time. No changes from cm10 previously documented assessment. Patient and/or family updated on plan of care and expected duration. Pain level reassessed. Patient denies pain at this time. 22:00 Reassessment: Patient appears in no apparent distress at this time. No changes from cm10 previously documented assessment. Patient and/or family updated on plan of care and expected duration. Pain level reassessed. Patient is alert, oriented x 3, equal unlabored respirations, skin warm/dry/pink. 23:22 Pain: Pain began gradually. cm10 Vital Signs: 17:52 BP 121 / 74; Pulse 75; Resp 17; Temp 97.9; Pulse Ox 100% ; Weight 81.65 kg; Height 5 [facility] ft. 2 in. ; Pain 0/10; 19:30 BP 118 / 74; Pulse 74; Resp 16; Pulse Ox 100% ; cm10 20:00 BP 115 / 74; Pulse 74; Resp 18; Pulse Ox 100% on R/A; cm10 20:00 BP 118 / 74; Pulse 72; Resp 18; Pulse Ox 99% ; cm10 23:37 BP 118 / 82; Pulse 69; Resp 16; Pulse Ox 100% ; cm10 17:52 Body Mass Index 32.92 (81.65 kg, 157.48 cm) [facility] 17:52 Pain Scale: Adult jl7 ED Course: 17:31 Patient arrived in ED. im 17:41 Efren Salazar PA is PHCP. cp 17:41 Quinn Urena DO is Attending Physician. cp 17:55 Triage completed. jl7 17:56 Arm band placed on right wrist. jl7 18:14 Magaly Hurt, RN is Primary Nurse. cm10 18:14 Basic Metabolic Panel Sent. cm10 18:14 Lipase Sent. cm10 18:14 CBC with Diff Sent. cm10 18:14 LFT's Sent. cm10 18:14 Magnesium Sent. cm10 18:14 PT-INR Sent. cm10 18:14 Troponin HS Sent. cm10 18:15 Initial lab(s) drawn, by nc, sent to lab. EKG done, by ED staff, reviewed by Efern CABALLERO. Inserted saline lock: 20 gauge in right antecubital area, using aseptic technique. Blood collected. Patient maintains SpO2 saturation greater than 95% on room air. 18:17 Patient has correct armband on for positive identification. Bed in low position. Call cm10 light in reach. Provided Education on: ER process and procedures. . Client placed on continuous cardiac and pulse oximetry monitoring. NIBP monitoring applied. 18:48 XRAY Chest (1 view) In Process Unspecified. EDMS 19:39 CT Chest For PE Angio In Process Unspecified. EDMS 21:33 Alka Camarillo FNP is Hospitalizing Provider. cp 23:19 No provider procedures requiring assistance completed. cm10 23:22 Patient admitted, IV remains in place. cm10 Administered Medications: 19:58 Not Given (Patient Refused): [id number] mg IVP once cm10 Medication: 18:17 VIS not applicable for this client. cm10 Outcome: 21:33 Decision to Hospitalize by Provider. cp 23:19 Admitted to Med/surg accompanied by tech, via wheelchair, room 208, Report called to cmBean Cuba RN 23:19 Condition: good 23:19 Instructed on the need for admit, 23:38 Patient left the ED. cm10 Signatures: Dispatcher [employer] EDMS Efren Salazar PA PA cp Leal, Jahala, RN RN jl7 Meri Foreman Magaly Hurt, RN RN cm10 Corrections: (The following items were deleted from the chart) 17:56 17:56 Home Meds: None; jl7 jl7 17:56 17:56 PMHx: None; jl7 jl7 18:17 18:16 Pain: Complains of pain in chest cm10 cm10 :32 23:19 Admitted to Med/surg accompanied by tech, via wheelchair, room 208, cm10 cm10 23:19 Instructed on the need for admit, cm10 cm10
--- NOTE | 2023-04-06 21:57 | P.HP ---
Certification for Inpatient Patient admitted to: Observation With expected LOS: <2 Midnights Patient will require the following post-hospital care: None Practitioner: I am a practitioner with admitting privileges, knowledge of patient current condition, hospital course, and medical plan of care. Services: Services provided to patient in accordance with Admission requirements found in Title 42 Section 412.3 of the Code of Federal Regulations Patient History Date of Service: 04/07/23 History of Present Illness: 67-year-old female with a past medical history of hypertension, hypothyroidism presents to the emergency room with chest pain. She reports chest pain started today at 4 PM. She reports chest pain is substernal, nonradiating, no reported nausea vomiting shortness of breath. She reports recent sinus infection sinus drainage, cough, no reported shortness of breath. Fever. Plan to admit for chest pain rule out [place]. Vital signsBP 121 / 74; Pulse 75; Resp 17; Temp 97.9; Pulse Ox 100% ; EKG5 Rate is 74 beats/min. Rhythm is regular. ME interval is normal. QRS interval is normal. QT interval is normal. T waves are Inverted in lead aVR. Laboratory evaluation CBC unremarkable acute kidney injury BUN 22 creatinine 1.11, troponin normat 5.3, chest x-ray no acute abnormalities, CTA of the chest no evidence of pulmonary emboli Allergies No Known Allergies Allergy (Unverified 04/06/23 23:48) Home Medications: Levothyroxine Sodium [Euthyrox] 75 mcg PO DAILY 04/07/23 Lisinopril/Hydrochlorothiazide [Lisinopril-Hctz 20-12.5 mg Tab] 1 tab PO DAILY 04/07/23 - Past Medical/Surgical History -: Hypertension -: Hypothyroidism -: Tonsillectomy -: Tubal -: Cholecystectomy -: Bone spur - Social History Smoking Status: Never smoker Alcohol use: No CD- Drugs: No Caffeine use: Yes Place of Residence: Home Review of Systems 10-point ROS is otherwise unremarkable Physical Examination - Physical Exam General: Alert, In no apparent distress, Oriented x3 HEENT: Atraumatic, Normocephalic, PERRLA, Other (Sinusitis) Neck: Supple, 2+ carotid pulse no bruit Respiratory: Clear to auscultation bilaterally, Normal air movement Cardiovascular: No edema, Regular rate/rhythm, Other (Substernal chest pain 4 out of 10) Capillary refill: <2 Seconds Gastrointestinal: Normal bowel sounds, Soft and benign Musculoskeletal: No clubbing, No swelling Neurological: Normal speech, Normal strength at 5/5 x4 extr - Studies Laboratory Data (last 24 hrs) 04/06/23 04/06/23 04/06/23 18:12 18:12 18:12 WBC 7.80 Hgb 12.8 Hct 37.3 Plt Count 325 PT 10.4 INR 0.95 Sodium 136 Potassium 4.0 BUN 22 H Creatinine 1.11 H Glucose 105 Magnesium 2.3 Total Bilirubin 0.2 AST 21 ALT 31 Alkaline Phosphatase 95 Lipase 32 Assessment and Plan - Plan Assessment plan Chest pain rule out [place] Acute kidney injury unknown baseline hypertension hypothyroidism chest pain. Cardiology consult, trend troponin, trend BMP, telemetry, as needed analgesics, antiemetics Aspirin, antilipid, She reports chest pain started today at 4 PM. She reports chest pain is substernal, nonradiating, no reported nausea vomiting shortness of breath. Vital sBP 121 / 74; Pulse 75; Resp 17; Temp 97.9; Pulse Ox 100% ; EKG5 Rate is 74 beats/min. Rhythm is regular. ME interval is normal. QRS interval is normal. QT interval is normal. T waves are Inverted in lead aVR. Laboratory evaluation troponin normal at 5.3, chest x-ray no acute abnormalities, CTA of the chest no evidence of pulmonary emboli Acute kidney injury Gentle IV fluids, trend kidney function Avoid nephrotoxic medications CBC unremarkable acute kidney injury BUN 22 creatinine 1.11, Essential hypertension Hypothyroidism Resume appropriate home meds N.p.o. after midnight Full code DVT heparin Discharge Plan: Home Plan to discharge in: 24 Hours - Advance Directives Does patient have a Living Will: No Does patient have a Durable POA for Healthcare: No - Code Status/Comfort Care Code Status: Full Code Physician Review: Patient Assessed, Agree with Above Assessment and Plan Critical Care: No Time Spent Managing Pts Care (In Minutes): 50
[2023-04-06] MEDS ORDERED: NA CHLORIDE 0.9% 1,000 ML IV SCH (23:31)
[2023-04-06] MEDS ORDERED: AZITHROMYCIN IV 500 MG in NA CHLORIDE 0.9% 250 ML IVPB SCH (23:31)
[2023-04-06] MEDS ORDERED: ONDANSETRON 4 MG/2 ML VIAL IV PRN (23:31)
[2023-04-06] MEDS ORDERED: ALPRAZOLAM 0.25 MG TABLET PO PRN (23:31)
[2023-04-06] MEDS ORDERED: BENZONATATE 100 MG CAP PO PRN (23:31)
[2023-04-06] MEDS ORDERED: MORPHINE 2 MG/ML SYR IV PRN (23:31)
[2023-04-06] MEDS ORDERED: ACETAMINOPHEN 500 MG TAB PO PRN (23:31)
[2023-04-07 00:30] VITALS: BMI 32.9
[2023-04-07] MEDS: HEPARIN 5000 UNIT/ML 1 ML VIAL SQ SCH ×2 (00:55→08:48)
[2023-04-07 00:58] VITALS: O2SAT 100
[2023-04-07 00:58] LABS: Troponin High Sensitivity 5.9 pg/mL (<58.9)
[2023-04-07 03:46] LABS: Hematocrit 36.5 % (36.0-45.0); RBC Red Blood Cell Count 4.24 M/uL (3.86-4.86)
[2023-04-07 03:47] LABS: Absolute Lymphocytes (CBC) 1.5 K/uL (0.7-4.9); Lymphocytes % 21.4 % (15.3-44.8); MPV 7.7 fL (7.6-11.3); Magnesium 2.3 mg/dL (1.6-2.4); Platelets 307 thou/uL (152-406); Potassium 3.8 mEq/L (3.5-5.1)
[2023-04-07] MEDS ORDERED: POTASSIUM CL SA 10 MEQ TAB PO ONE (09:00)
[2023-04-07] MEDS ORDERED: ASPIRIN 325 MG TAB PO SCH (09:00)
[2023-04-07 12:09] VITALS: BP 106/67; TEMP 97.3
--- NOTE | 2023-04-07 12:25 | EKG ---
Test Date: 2023-04-06 Test Time: 17:41:23 Revenue Accounting Manager: DELORES MEASUREMENT RESULTS: Intervals: Rate: 74 CA: 178 QRSD: 72 QT: 404 QTc: 448 [place]: P: 14 CA: 178 QRS: 67 T: 59 INTERPRETIVE STATEMENTS: Normal sinus rhythm Normal ECG Compared to ECG 12/14/2019 14:17:05 No significant changes Electronically Signed On 04-07-23 12:23:48 CDT by Yuri Celestin
--- NOTE | 2023-04-07 16:26 | CON ---
Date of Consultation: 04/07/2023 Reason For Consultation: Chest pain. History Of Present Illness: A 67-year-old female with history of hypertension, hypothyroidism, prese nted with chest pain, started yesterday in the afternoon, on and off, retrosternal, nonradiating. De nies having any vomiting or diaphoresis with it. Had multiple episodes and since the morning today, she has been chest pain free. No other complaints. Past Medical History: As outlined above in the HPI. Medications: Refer to reconciliation sheet for detailed list. Allergies: NO KNOWN DRUG ALLERGIES. Family History: No premature coronary artery disease or cancer. Social History: Does not smoke or drink. Does not use any drugs. Review of Systems: All systems reviewed and they were negative except as mentioned in HPI. Physical Examination: Vital Signs: Reviewed. Head and Neck: Pupils are equal, reactive to light. Intact eye movements. No JVD. No cervical lym phadenopathy. Neck is supple. Thyroid is not enlarged. Lungs: Clear to auscultation bilaterally. No rhonchi, wheezing, or crackles. No accessory muscle u se. Heart: Regular rate and rhythm. No extra sounds. Abdomen: Soft, nontender. Bowel sounds positive. No organomegaly. No masses or hernia. No rigidi ty or rebound. Extremities: No edema, clubbing, or cyanosis. Intact pulses. Skin: No rashes or nodules. Neurologic: Alert, awake, oriented x3. No acute focal deficits appreciated. Investigations: Cardiac enzymes are negative. BUN 21, creatinine 1.04, hemoglobin 12.7. Assessment/recommendations: 1.Chest pain. Myocardial infarction was ruled out. She has been chest pain free. She can be relea sed from Cardiology standpoint. We will plan for outpatient stress test and an echo. 2.Hypertension. Blood pressure is controlled. Continue current management. 3.Hypothyroidism. Check thyroid level. SR/MODL Voice ID: [id number] Report ID: [id number]
[2023-04-07] MEDS ORDERED: ROSUVASTATIN 10 MG TAB PO SCH (21:00)
== END 2023-04-07 13:48 | disposition home or self-care (01) ==
LOC: ER 17:28 → ERHOLD 22:01 → 2ND 23:20
PROVIDERS: ADMIT Hospitalist; ATTEND Hospitalist
DX: R07.9 Chest pain, unspecified (principal); I10 Essential (primary) hypertension; E03.9 Hypothyroidism, unspecified; N17.9 Acute kidney failure, unspecified
CPT/HCPCS: 36415; 71045; 71275; 80048; 80061; 80076; 83690; 83735; 84100; 84484; 85025; 85610; 93005; 99285; G0378; J1644; J7030; J7050; Q9967